=== PATIENT | female | born 1930 | race Asian ===

== ENCOUNTER 2016-10-17 13:55 | Inpatient (IN) | payer MEDICARE, OTHER ==
[~2016-10-17] VITALS: Ht 152.4 cm; Wt 55.3 kg
[2016-10-17 14:35] VITALS: BP 103/65
[2016-10-17] MEDS: ACETAMINOPHEN 325 MG TABLET PO PRN (14:51)
[2016-10-17] MEDS ORDERED: ACETAMINOPHEN 325 MG TABLET ONE (15:05)
[2016-10-17 15:17] VITALS: BP 104/61
[2016-10-17 15:35] VITALS: BP 124/66
[2016-10-17] MEDS ORDERED: DEXTROSE 50%-WATER 25 GM/50 ML SYRINGE IVP PRN ×2 (16:00)
[2016-10-17] MEDS ORDERED: INSULIN ASPART 100 UNITS/ML SQ PRN (16:00)
[2016-10-17 18:07] LABS: GLUCOSE,POINT OF CARE 99 MG/DL (70-110)
[2016-10-17 20:00] VITALS: BP 98/53
[2016-10-17] MEDS: SENNA 187 MG TABLET PO SCH (20:16)
[2016-10-17] MEDS: DOCUSATE SODIUM 100 MG CAPSULE PO SCH (20:16)
[2016-10-17] MEDS: ATORVASTATIN CALCIUM 10 MG TABLET PO SCH (20:16)
[2016-10-17] MEDS: HEPARIN SODIUM,PORCINE 5,000 UNITS/ML VIAL SQ SCH (20:17)
[2016-10-17] MEDS: LISINOPRIL 20 MG TABLET PO SCH (20:17)
[2016-10-17] MEDS: LevETIRAcetam 500 MG TABLET PO SCH (20:17)
[2016-10-17] MEDS ORDERED: DEXAMETHASONE 2 MG TABLET PO SCH (21:00)
[2016-10-17] MEDS ORDERED: ATORVASTATIN CALCIUM 10 MG TABLET PO SCH (21:00)
[2016-10-17 21:38] LABS: GLUCOSE,POINT OF CARE 117 MG/DL (70-110)
[2016-10-17 21:47] LABS: APPEARANCE,URINE CLEAR (CLEAR); GLUCOSE, URINE (UA) NEGATIVE (NEGATIVE); KETONES,URINE NEGATIVE (NEGATIVE); LEUKOCYTE ESTERASE ,URINE SMALL (NEGATIVE); OCCULT BLOOD,URINE NEGATIVE (NEGATIVE); PROTEIN,URINE NEGATIVE (NEGATIVE)
[2016-10-17 21:56] LABS: SQUAMOUS EPITHELIAL CELL,UR Moderate /LPF (None Seen)
[2016-10-17 21:58] LABS: RBC,URINE 0-2 /HPF (0-2)
[2016-10-18] VITALS: BP 121/71
[2016-10-18] MEDS: ACETAMINOPHEN 325 MG TABLET PO PRN (02:51)
[2016-10-18 05:37] LABS: GLUCOSE,POINT OF CARE 110 MG/DL (70-110)
[2016-10-18 07:20] VITALS: BP 115/76
[2016-10-18 07:29] LABS: BASOPHILS % (AUTO) 0.1 % (0.0-2.0); HEMATOCRIT 39.9 % (36-46); HEMOGLOBIN 13.7 g/dL (12.0-16.0); LYMPHOCYTES # (AUTO) 1.6 K/uL (1.0-4.8); LYMPHOCYTES % (AUTO) 22.8 % (22.0-44.0); MEAN CORPUSCULAR HEMOGLOBIN 32.2 pg (26.0-34.0); MEAN CORPUSCULAR HGB CONC 34.3 G/dL (31.0-37.0); MEAN CORPUSCULAR VOLUME 94 fL (80-100); MONOCYTES # (AUTO) 0.8 K/uL (0.1-1.0); MONOCYTES % (AUTO) 10.9 % (2.0-9.0); NEUTROPHILS # (AUTO) 4.5 K/uL (1.8-7.7); NEUTROPHILS % (AUTO) 64.2 % (40.0-70.0); PLATELET COUNT (AUTO) 222 K/uL (150-450); RED BLOOD CELL COUNT(AUTO) 4.25 MIL/uL (4.00-5.20); RED CELL DISTRIBUTION WIDTH 14.2 % (11.5-14.5); WHITE BLOOD COUNT (AUTO) 7.1 K/uL (4.5-11.0)
[2016-10-18 07:46] LABS: ALANINE AMINOTRANSFERASE 46 U/L (12-78); ALBUMIN 2.8 g/dL (3.4-5.0); ANION GAP 6 mmol/L (8-16); ASPARTATE AMINOTRANSFERASE 23 U/L (15-37); BILIRUBIN,TOTAL 0.7 mg/dL (0.1-1.0); CARBON DIOXIDE 31 mmol/L (22-29); CHLORIDE 102 mmol/L (98-107); CREATININE 0.74 mg/dL (0.60-1.30); GLOMERULAR FILTR. RATE CALC > 60 mL/min (>60); SODIUM SERUM 139 mmol/L (136-145); UREA NITROGEN, BLOOD 21 mg/dL (7-18)
[2016-10-18 07:58] LABS: TOTAL PROTEIN, SERUM 5.9 g/dL (6.4-8.2)
[2016-10-18] MEDS: AmLODIPine BESYLATE 10 MG TABLET PO SCH (08:49)
[2016-10-18] MEDS: HEPARIN SODIUM,PORCINE 5,000 UNITS/ML VIAL SQ SCH ×2 (08:49→21:07)
[2016-10-18] MEDS: PANTOPRAZOLE SODIUM 40 MG DR TABLET PO SCH (08:49)
[2016-10-18] MEDS: ESCITALOPRAM OXALATE 20 MG TABLET PO SCH (08:49)
[2016-10-18] MEDS: DEXAMETHASONE 2 MG TABLET PO SCH (08:50)
[2016-10-18] MEDS: DOCUSATE SODIUM 100 MG CAPSULE PO SCH ×2 (08:50→21:08)
[2016-10-18] MEDS: CALCIUM OYSTER SHELL 250 MG-VIT D3 125 UNITS TABLET PO SCH (08:50)
[2016-10-18] MEDS: MULTIVITAMINS WITH MINERALS, THERAPEUTIC TABLET PO SCH (08:50)
[2016-10-18] MEDS: LevETIRAcetam 500 MG TABLET PO SCH ×2 (08:50→21:07)
[2016-10-18 11:57] LABS: GLUCOSE,POINT OF CARE 100 MG/DL (70-110)
[2016-10-18 16:00] VITALS: BP 114/61
[2016-10-18 17:47] LABS: GLUCOSE,POINT OF CARE 87 MG/DL (70-110)
[2016-10-18 21:00] VITALS: BP 123/68
[2016-10-18] MEDS: SENNA 187 MG TABLET PO SCH (21:07)
[2016-10-18] MEDS: ATORVASTATIN CALCIUM 10 MG TABLET PO SCH (21:07)
[2016-10-18] MEDS: LISINOPRIL 20 MG TABLET PO SCH (21:08)
[2016-10-18 22:22] LABS: GLUCOSE,POINT OF CARE 139 MG/DL (70-110)
[2016-10-18 23:53] VITALS: BP 120/81
[2016-10-19 06:12] LABS: GLUCOSE,POINT OF CARE 115 MG/DL (70-110)
[2016-10-19 07:10] VITALS: BP 108/65
[2016-10-19] MEDS: DOCUSATE SODIUM 100 MG CAPSULE PO SCH (07:59)
[2016-10-19] MEDS: PANTOPRAZOLE SODIUM 40 MG DR TABLET PO SCH (07:59)
[2016-10-19] MEDS: CALCIUM OYSTER SHELL 250 MG-VIT D3 125 UNITS TABLET PO SCH (07:59)
[2016-10-19] MEDS: DEXAMETHASONE 2 MG TABLET PO SCH (08:00)
[2016-10-19] MEDS: HEPARIN SODIUM,PORCINE 5,000 UNITS/ML VIAL SQ SCH ×2 (08:00→20:57)
[2016-10-19] MEDS: AmLODIPine BESYLATE 10 MG TABLET PO SCH (08:00)
[2016-10-19] MEDS: MULTIVITAMINS WITH MINERALS, THERAPEUTIC TABLET PO SCH (08:00)
[2016-10-19] MEDS: LevETIRAcetam 500 MG TABLET PO SCH ×2 (08:00→20:56)
[2016-10-19] MEDS: ESCITALOPRAM OXALATE 20 MG TABLET PO SCH (08:00)
[2016-10-19 12:57] LABS: GLUCOSE,POINT OF CARE 121 MG/DL (70-110)
[2016-10-19 15:10] VITALS: BP 104/65
[2016-10-19 17:33] LABS: GLUCOSE,POINT OF CARE 109 MG/DL (70-110)
[2016-10-19 20:50] VITALS: BP 131/68
[2016-10-19] MEDS: ATORVASTATIN CALCIUM 10 MG TABLET PO SCH (20:56)
[2016-10-19] MEDS ORDERED: SENNA 187 MG TABLET PO PRN (21:00)
[2016-10-19] MEDS: LISINOPRIL 20 MG TABLET PO SCH (21:08)
[2016-10-19 21:12] LABS: GLUCOSE,POINT OF CARE 116 MG/DL (70-110)
[2016-10-20 00:13] VITALS: BP 110/68
[2016-10-20] MEDS: DOCUSATE SODIUM 283 MG/5 ML MINI-ENEMA PR PRN (05:25)
[2016-10-20 05:42] LABS: GLUCOSE,POINT OF CARE 94 MG/DL (70-110)
[2016-10-20 07:10] VITALS: BP 106/65
[2016-10-20] MEDS: ESCITALOPRAM OXALATE 20 MG TABLET PO SCH (08:07)
[2016-10-20] MEDS: CALCIUM OYSTER SHELL 250 MG-VIT D3 125 UNITS TABLET PO SCH (08:07)
[2016-10-20] MEDS: LevETIRAcetam 500 MG TABLET PO SCH ×2 (08:07→20:54)
[2016-10-20] MEDS: PANTOPRAZOLE SODIUM 40 MG DR TABLET PO SCH (08:08)
[2016-10-20] MEDS: AmLODIPine BESYLATE 10 MG TABLET PO SCH (08:08)
[2016-10-20] MEDS: MULTIVITAMINS WITH MINERALS, THERAPEUTIC TABLET PO SCH (08:08)
[2016-10-20] MEDS: DEXAMETHASONE 2 MG TABLET PO SCH (08:08)
[2016-10-20] MEDS: HEPARIN SODIUM,PORCINE 5,000 UNITS/ML VIAL SQ SCH ×2 (08:08→20:54)
[2016-10-20] MEDS ORDERED: ESCI20TA PO (08:29)
[2016-10-20] MEDS ORDERED: ATOR10TA84 PO (08:29)
[2016-10-20] MEDS ORDERED: MULT-1259 PO (08:29)
[2016-10-20] MEDS ORDERED: ESOM20CA31 PO (08:29)
[2016-10-20] MEDS ORDERED: CALC-52 PO (08:29)
[2016-10-20 15:00] VITALS: BP 104/61
[2016-10-20 17:07] LABS: GLUCOSE,POINT OF CARE 140 MG/DL (70-110)
[2016-10-20 20:50] VITALS: BP 108/64
[2016-10-20] MEDS: LISINOPRIL 20 MG TABLET PO SCH (20:54)
[2016-10-20] MEDS: ATORVASTATIN CALCIUM 10 MG TABLET PO SCH (20:54)
[2016-10-20 21:22] LABS: GLUCOSE,POINT OF CARE 159 MG/DL (70-110)
[2016-10-21 00:44] VITALS: BP 116/54
[2016-10-21] MEDS: DOCUSATE SODIUM 283 MG/5 ML MINI-ENEMA PR PRN (04:56)
[2016-10-21] MEDS ORDERED: DOCUSATE SODIUM 283 MG/5 ML MINI-ENEMA PR SCH (06:30)
[2016-10-21 07:02] LABS: GLUCOSE,POINT OF CARE 97 MG/DL (70-110)
[2016-10-21 07:02] LABS: GLUCOSE,POINT OF CARE 100 MG/DL (70-110)
[2016-10-21 07:30] VITALS: BP 116/69
[2016-10-21] MEDS: AmLODIPine BESYLATE 10 MG TABLET PO SCH (07:44)
[2016-10-21] MEDS: ESCITALOPRAM OXALATE 20 MG TABLET PO SCH (07:44)
[2016-10-21] MEDS: LevETIRAcetam 500 MG TABLET PO SCH ×2 (07:44→20:41)
[2016-10-21] MEDS: CALCIUM OYSTER SHELL 250 MG-VIT D3 125 UNITS TABLET PO SCH (07:44)
[2016-10-21] MEDS: PANTOPRAZOLE SODIUM 40 MG DR TABLET PO SCH (07:45)
[2016-10-21] MEDS: HEPARIN SODIUM,PORCINE 5,000 UNITS/ML VIAL SQ SCH ×2 (07:45→20:41)
[2016-10-21] MEDS: MULTIVITAMINS WITH MINERALS, THERAPEUTIC TABLET PO SCH (07:45)
[2016-10-21 11:37] LABS: GLUCOSE,POINT OF CARE 92 MG/DL (70-110)
[2016-10-21 15:47] VITALS: BP 104/56
[2016-10-21 18:07] LABS: GLUCOSE,POINT OF CARE 107 MG/DL (70-110)
[2016-10-21] MEDS: ATORVASTATIN CALCIUM 10 MG TABLET PO SCH (20:41)
[2016-10-21] MEDS: LISINOPRIL 20 MG TABLET PO SCH (20:41)
[2016-10-21 23:40] VITALS: BP 108/63
[2016-10-22] MEDS: DOCUSATE SODIUM 283 MG/5 ML MINI-ENEMA PR PRN (04:52)
[2016-10-22 06:07] LABS: GLUCOSE,POINT OF CARE 105 MG/DL (70-110)
[2016-10-22 07:21] VITALS: BP 103/65
[2016-10-22] MEDS: AmLODIPine BESYLATE 10 MG TABLET PO SCH (09:03)
[2016-10-22] MEDS: ESCITALOPRAM OXALATE 20 MG TABLET PO SCH (09:03)
[2016-10-22] MEDS: HEPARIN SODIUM,PORCINE 5,000 UNITS/ML VIAL SQ SCH ×2 (09:03→20:40)
[2016-10-22] MEDS: CALCIUM OYSTER SHELL 250 MG-VIT D3 125 UNITS TABLET PO SCH (09:04)
[2016-10-22] MEDS: PANTOPRAZOLE SODIUM 40 MG DR TABLET PO SCH (09:04)
[2016-10-22] MEDS: LevETIRAcetam 500 MG TABLET PO SCH ×2 (09:04→20:40)
[2016-10-22] MEDS: MULTIVITAMINS WITH MINERALS, THERAPEUTIC TABLET PO SCH (09:04)
[2016-10-22 16:19] VITALS: BP 99/55
[2016-10-22 20:40] VITALS: BP 113/71
[2016-10-22] MEDS: ATORVASTATIN CALCIUM 10 MG TABLET PO SCH (20:40)
[2016-10-22] MEDS: LISINOPRIL 20 MG TABLET PO SCH (20:40)
[2016-10-22 20:47] VITALS: BP 113/71
[2016-10-22 21:17] LABS: GLUCOSE,POINT OF CARE 101 MG/DL (70-110)
[2016-10-22 23:20] VITALS: BP 113/66
[2016-10-23 05:47] LABS: GLUCOSE,POINT OF CARE 112 MG/DL (70-110)
[2016-10-23 07:30] VITALS: BP 96/49
[2016-10-23] MEDS: HEPARIN SODIUM,PORCINE 5,000 UNITS/ML VIAL SQ SCH ×2 (07:42→21:11)
[2016-10-23] MEDS: PANTOPRAZOLE SODIUM 40 MG DR TABLET PO SCH (07:42)
[2016-10-23] MEDS: CALCIUM OYSTER SHELL 250 MG-VIT D3 125 UNITS TABLET PO SCH (07:42)
[2016-10-23] MEDS: AmLODIPine BESYLATE 10 MG TABLET PO SCH (07:43)
[2016-10-23] MEDS: LevETIRAcetam 500 MG TABLET PO SCH ×2 (07:43→21:09)
[2016-10-23] MEDS: MULTIVITAMINS WITH MINERALS, THERAPEUTIC TABLET PO SCH (07:43)
[2016-10-23] MEDS: ESCITALOPRAM OXALATE 20 MG TABLET PO SCH (07:43)
[2016-10-23] MEDS ORDERED: TUBERCULIN, PURIFIED PROTEIN DERIVATIVE 5 TU/0.1 ML SYG ID ONE (11:30)
[2016-10-23 16:58] VITALS: BP 98/63
[2016-10-23 21:03] VITALS: BP 104/63
[2016-10-23] MEDS: ATORVASTATIN CALCIUM 10 MG TABLET PO SCH (21:09)
[2016-10-23] MEDS: LISINOPRIL 10 MG TABLET PO SCH (21:11)
[2016-10-24 00:29] VITALS: BP 101/57
[2016-10-24 07:00] VITALS: BP 97/66
[2016-10-24] MEDS: HEPARIN SODIUM,PORCINE 5,000 UNITS/ML VIAL SQ SCH ×2 (07:56→21:27)
[2016-10-24] MEDS: DOCUSATE SODIUM 100 MG CAPSULE PO PRN (07:56)
[2016-10-24] MEDS: PANTOPRAZOLE SODIUM 40 MG DR TABLET PO SCH (07:56)
[2016-10-24] MEDS: MULTIVITAMINS WITH MINERALS, THERAPEUTIC TABLET PO SCH (07:57)
[2016-10-24] MEDS: LevETIRAcetam 500 MG TABLET PO SCH ×2 (07:58→21:21)
[2016-10-24] MEDS: ESCITALOPRAM OXALATE 20 MG TABLET PO SCH (07:59)
[2016-10-24] MEDS: AmLODIPine BESYLATE 10 MG TABLET PO SCH (07:59)
[2016-10-24] MEDS: CALCIUM OYSTER SHELL 250 MG-VIT D3 125 UNITS TABLET PO SCH (07:59)
[2016-10-24 15:34] VITALS: BP 98/56
[2016-10-24] MEDS: ATORVASTATIN CALCIUM 10 MG TABLET PO SCH (21:22)
[2016-10-24 21:38] VITALS: BP 110/62
[2016-10-24] MEDS: LISINOPRIL 10 MG TABLET PO SCH (21:59)
[2016-10-25] VITALS: BP 97/57
[2016-10-25 07:00] VITALS: BP 90/49
[2016-10-25] MEDS: CALCIUM OYSTER SHELL 250 MG-VIT D3 125 UNITS TABLET PO SCH (07:41)
[2016-10-25] MEDS: PANTOPRAZOLE SODIUM 40 MG DR TABLET PO SCH (07:41)
[2016-10-25] MEDS: ESCITALOPRAM OXALATE 20 MG TABLET PO SCH (07:41)
[2016-10-25] MEDS: HEPARIN SODIUM,PORCINE 5,000 UNITS/ML VIAL SQ SCH ×2 (07:41→20:47)
[2016-10-25] MEDS: MULTIVITAMINS WITH MINERALS, THERAPEUTIC TABLET PO SCH (07:41)
[2016-10-25] MEDS: AmLODIPine BESYLATE 10 MG TABLET PO SCH (07:41)
[2016-10-25] MEDS: LevETIRAcetam 500 MG TABLET PO SCH ×2 (07:41→20:47)
[2016-10-25 09:15] VITALS: BP 87/55
[2016-10-25] MEDS: ACETAMINOPHEN 325 MG TABLET PO PRN (15:21)
[2016-10-25 15:22] VITALS: BP 94/64
[2016-10-25] MEDS: ATORVASTATIN CALCIUM 10 MG TABLET PO SCH (20:47)
[2016-10-26 01:20] VITALS: BP 103/56
[2016-10-26 07:20] VITALS: BP 101/57
[2016-10-26] MEDS: CALCIUM OYSTER SHELL 250 MG-VIT D3 125 UNITS TABLET PO SCH (07:58)
[2016-10-26] MEDS: ESCITALOPRAM OXALATE 20 MG TABLET PO SCH (07:58)
[2016-10-26] MEDS: PANTOPRAZOLE SODIUM 40 MG DR TABLET PO SCH (07:58)
[2016-10-26] MEDS: MULTIVITAMINS WITH MINERALS, THERAPEUTIC TABLET PO SCH (07:58)
[2016-10-26] MEDS: LevETIRAcetam 500 MG TABLET PO SCH ×2 (07:59→20:00)
[2016-10-26] MEDS: HEPARIN SODIUM,PORCINE 5,000 UNITS/ML VIAL SQ SCH ×2 (07:59→20:00)
[2016-10-26 08:05] VITALS: BP 99/67
[2016-10-26] MEDS: AmLODIPine BESYLATE 10 MG TABLET PO SCH (08:05)
[2016-10-26 15:30] VITALS: BP 111/63
[2016-10-26] MEDS: ATORVASTATIN CALCIUM 10 MG TABLET PO SCH (20:00)
[2016-10-26 23:25] VITALS: BP 137/69
[2016-10-27 07:00] VITALS: BP 106/64
[2016-10-27] MEDS: HEPARIN SODIUM,PORCINE 5,000 UNITS/ML VIAL SQ SCH ×2 (07:49→22:12)
[2016-10-27] MEDS: CALCIUM OYSTER SHELL 250 MG-VIT D3 125 UNITS TABLET PO SCH (07:50)
[2016-10-27] MEDS: MULTIVITAMINS WITH MINERALS, THERAPEUTIC TABLET PO SCH (07:50)
[2016-10-27] MEDS: LevETIRAcetam 500 MG TABLET PO SCH ×2 (07:50→22:12)
[2016-10-27] MEDS: ESCITALOPRAM OXALATE 20 MG TABLET PO SCH (07:50)
[2016-10-27] MEDS: AmLODIPine BESYLATE 10 MG TABLET PO SCH (07:50)
[2016-10-27] MEDS: PANTOPRAZOLE SODIUM 40 MG DR TABLET PO SCH (07:50)
[2016-10-27 15:00] VITALS: BP 102/58
[2016-10-27] MEDS: ATORVASTATIN CALCIUM 10 MG TABLET PO SCH (22:12)
[2016-10-28] VITALS: BP 112/66
[2016-10-28 07:51] VITALS: BP 107/68
[2016-10-28] MEDS: AmLODIPine BESYLATE 5 MG TABLET PO SCH (08:02)
[2016-10-28] MEDS: MULTIVITAMINS WITH MINERALS, THERAPEUTIC TABLET PO SCH (08:02)
[2016-10-28] MEDS: PANTOPRAZOLE SODIUM 40 MG DR TABLET PO SCH (08:02)
[2016-10-28] MEDS: HEPARIN SODIUM,PORCINE 5,000 UNITS/ML VIAL SQ SCH ×2 (08:02→21:15)
[2016-10-28] MEDS: CALCIUM OYSTER SHELL 250 MG-VIT D3 125 UNITS TABLET PO SCH (08:02)
[2016-10-28] MEDS: LevETIRAcetam 500 MG TABLET PO SCH ×2 (08:02→21:15)
[2016-10-28] MEDS: ESCITALOPRAM OXALATE 20 MG TABLET PO SCH (08:02)
[2016-10-28 17:23] VITALS: BP 135/63
[2016-10-28] MEDS: ATORVASTATIN CALCIUM 10 MG TABLET PO SCH (21:15)
[2016-10-29 01:54] VITALS: BP 123/70
[2016-10-29 07:14] VITALS: BP 104/71
[2016-10-29] MEDS: PANTOPRAZOLE SODIUM 40 MG DR TABLET PO SCH (08:33)
[2016-10-29] MEDS: LevETIRAcetam 500 MG TABLET PO SCH ×2 (08:33→21:02)
[2016-10-29] MEDS: CALCIUM OYSTER SHELL 250 MG-VIT D3 125 UNITS TABLET PO SCH (08:33)
[2016-10-29] MEDS: MULTIVITAMINS WITH MINERALS, THERAPEUTIC TABLET PO SCH (08:33)
[2016-10-29] MEDS: AmLODIPine BESYLATE 5 MG TABLET PO SCH (08:34)
[2016-10-29] MEDS: HEPARIN SODIUM,PORCINE 5,000 UNITS/ML VIAL SQ SCH ×2 (08:34→21:02)
[2016-10-29] MEDS: ESCITALOPRAM OXALATE 20 MG TABLET PO SCH (08:34)
[2016-10-29 13:02] VITALS: BP 98/53
[2016-10-29 15:26] VITALS: BP 97/71
[2016-10-29] MEDS: ATORVASTATIN CALCIUM 10 MG TABLET PO SCH (21:02)
[2016-10-30] VITALS: BP 102/62
[2016-10-30 07:57] VITALS: BP 115/78
[2016-10-30] MEDS: CALCIUM OYSTER SHELL 250 MG-VIT D3 125 UNITS TABLET PO SCH (08:25)
[2016-10-30] MEDS: LevETIRAcetam 500 MG TABLET PO SCH (08:25)
[2016-10-30] MEDS: MULTIVITAMINS WITH MINERALS, THERAPEUTIC TABLET PO SCH (08:25)
[2016-10-30] MEDS: ESCITALOPRAM OXALATE 20 MG TABLET PO SCH (08:25)
[2016-10-30] MEDS: AmLODIPine BESYLATE 5 MG TABLET PO SCH (08:25)
[2016-10-30] MEDS: HEPARIN SODIUM,PORCINE 5,000 UNITS/ML VIAL SQ SCH ×2 (08:25→20:20)
[2016-10-30] MEDS: PANTOPRAZOLE SODIUM 40 MG DR TABLET PO SCH (08:26)
[2016-10-30] MEDS: LamoTRIgine 25 MG TABLET PO SCH (12:38)
[2016-10-30 15:30] VITALS: BP 103/65
[2016-10-30] MEDS: ATORVASTATIN CALCIUM 10 MG TABLET PO SCH (20:20)
[2016-10-31] VITALS: BP 119/64
[2016-10-31 07:00] VITALS: BP 104/58
[2016-10-31] MEDS: AmLODIPine BESYLATE 5 MG TABLET PO SCH (07:54)
[2016-10-31] MEDS: ESCITALOPRAM OXALATE 20 MG TABLET PO SCH (07:55)
[2016-10-31] MEDS: LamoTRIgine 25 MG TABLET PO SCH (07:55)
[2016-10-31] MEDS: MULTIVITAMINS WITH MINERALS, THERAPEUTIC TABLET PO SCH (07:56)
[2016-10-31] MEDS: FAMOTIDINE 20 MG TABLET PO SCH (07:56)
[2016-10-31] MEDS: DOCUSATE SODIUM 100 MG CAPSULE PO PRN (07:56)
[2016-10-31] MEDS: CALCIUM OYSTER SHELL 250 MG-VIT D3 125 UNITS TABLET PO SCH (07:56)
[2016-10-31] MEDS: POLYETHYLENE GLYCOL 3350 17 GM PACKET PO PRN ×2 (07:57→08:10)
[2016-10-31 08:00] VITALS: BP 104/58
[2016-10-31] MEDS: HEPARIN SODIUM,PORCINE 5,000 UNITS/ML VIAL SQ SCH ×2 (12:22→20:21)
[2016-10-31 15:52] VITALS: BP 106/74
[2016-10-31] MEDS: ATORVASTATIN CALCIUM 10 MG TABLET PO SCH (20:20)
[2016-10-31 23:11] VITALS: BP 113/60
[2016-11-01 07:02] VITALS: BP 114/75
[2016-11-01] MEDS: ESCITALOPRAM OXALATE 20 MG TABLET PO SCH (07:25)
[2016-11-01] MEDS: LamoTRIgine 25 MG TABLET PO SCH (07:25)
[2016-11-01] MEDS: CALCIUM OYSTER SHELL 250 MG-VIT D3 125 UNITS TABLET PO SCH (07:26)
[2016-11-01] MEDS: MULTIVITAMINS WITH MINERALS, THERAPEUTIC TABLET PO SCH (07:26)
[2016-11-01] MEDS: FAMOTIDINE 20 MG TABLET PO SCH (07:26)
[2016-11-01] MEDS: AmLODIPine BESYLATE 5 MG TABLET PO SCH (07:26)
[2016-11-01] MEDS: HEPARIN SODIUM,PORCINE 5,000 UNITS/ML VIAL SQ SCH ×2 (07:26→20:25)
[2016-11-01 15:00] VITALS: BP 119/70
[2016-11-01] MEDS: ATORVASTATIN CALCIUM 10 MG TABLET PO SCH (20:25)
[2016-11-01] MEDS: DOCUSATE SODIUM 100 MG CAPSULE PO SCH (20:25)
[2016-11-01] MEDS: LACOSAMIDE 100 MG TABLET PO SCH (20:32)
[2016-11-01 23:00] VITALS: BP 113/61
[2016-11-02 07:15] VITALS: BP 102/66
[2016-11-02] MEDS: CALCIUM OYSTER SHELL 250 MG-VIT D3 125 UNITS TABLET PO SCH (07:23)
[2016-11-02] MEDS: AmLODIPine BESYLATE 5 MG TABLET PO SCH (07:23)
[2016-11-02] MEDS: MULTIVITAMINS WITH MINERALS, THERAPEUTIC TABLET PO SCH (07:23)
[2016-11-02] MEDS: ESCITALOPRAM OXALATE 20 MG TABLET PO SCH (07:23)
[2016-11-02] MEDS: DOCUSATE SODIUM 100 MG CAPSULE PO SCH ×2 (07:23→21:05)
[2016-11-02] MEDS: FAMOTIDINE 20 MG TABLET PO SCH (07:23)
[2016-11-02] MEDS: LACOSAMIDE 100 MG TABLET PO SCH ×2 (07:24→21:06)
[2016-11-02] MEDS: HEPARIN SODIUM,PORCINE 5,000 UNITS/ML VIAL SQ SCH ×2 (07:24→21:06)
[2016-11-02] MEDS ORDERED: FAMO20 PO (13:50)
[2016-11-02] MEDS ORDERED: DSS100 PO (13:50)
[2016-11-02] MEDS ORDERED: LACO100 PO (13:50)
[2016-11-02 15:53] VITALS: BP 98/63
[2016-11-02] MEDS: ATORVASTATIN CALCIUM 10 MG TABLET PO SCH (21:05)
[2016-11-02 23:30] VITALS: BP 107/65
[2016-11-03 07:35] VITALS: BP 119/70
[2016-11-03] MEDS: AmLODIPine BESYLATE 5 MG TABLET PO SCH (08:16)
[2016-11-03] MEDS: FAMOTIDINE 20 MG TABLET PO SCH (08:16)
[2016-11-03] MEDS: MULTIVITAMINS WITH MINERALS, THERAPEUTIC TABLET PO SCH (08:16)
[2016-11-03] MEDS: ESCITALOPRAM OXALATE 20 MG TABLET PO SCH (08:16)
[2016-11-03] MEDS: DOCUSATE SODIUM 100 MG CAPSULE PO SCH ×2 (08:16→20:28)
[2016-11-03] MEDS: LACOSAMIDE 100 MG TABLET PO SCH ×2 (08:16→20:28)
[2016-11-03] MEDS: CALCIUM OYSTER SHELL 250 MG-VIT D3 125 UNITS TABLET PO SCH (08:17)
[2016-11-03] MEDS: HEPARIN SODIUM,PORCINE 5,000 UNITS/ML VIAL SQ SCH ×2 (08:17→20:28)
[2016-11-03 15:43] VITALS: BP 105/65
[2016-11-03] MEDS: ATORVASTATIN CALCIUM 10 MG TABLET PO SCH (20:28)
[2016-11-04 04:17] VITALS: BP 127/72
[2016-11-04 07:12] VITALS: BP 120/76
[2016-11-04] MEDS: DOCUSATE SODIUM 100 MG CAPSULE PO SCH ×2 (07:51→20:37)
[2016-11-04] MEDS: LACOSAMIDE 100 MG TABLET PO SCH ×2 (07:51→20:37)
[2016-11-04] MEDS: MULTIVITAMINS WITH MINERALS, THERAPEUTIC TABLET PO SCH (07:52)
[2016-11-04] MEDS: FAMOTIDINE 20 MG TABLET PO SCH (07:52)
[2016-11-04] MEDS: HEPARIN SODIUM,PORCINE 5,000 UNITS/ML VIAL SQ SCH ×2 (07:53→20:37)
[2016-11-04] MEDS: AmLODIPine BESYLATE 5 MG TABLET PO SCH (07:53)
[2016-11-04] MEDS: ESCITALOPRAM OXALATE 20 MG TABLET PO SCH (07:53)
[2016-11-04] MEDS: CALCIUM OYSTER SHELL 250 MG-VIT D3 125 UNITS TABLET PO SCH (07:53)
[2016-11-04 15:25] VITALS: BP 103/73
[2016-11-04] MEDS: ATORVASTATIN CALCIUM 10 MG TABLET PO SCH (20:37)
[2016-11-05 00:30] VITALS: BP 122/76
[2016-11-05 07:41] VITALS: BP 114/75
[2016-11-05] MEDS: HEPARIN SODIUM,PORCINE 5,000 UNITS/ML VIAL SQ SCH ×2 (08:05→20:25)
[2016-11-05] MEDS: LACOSAMIDE 100 MG TABLET PO SCH ×2 (08:05→20:25)
[2016-11-05] MEDS: DOCUSATE SODIUM 100 MG CAPSULE PO SCH ×2 (08:05→20:25)
[2016-11-05] MEDS: ESCITALOPRAM OXALATE 20 MG TABLET PO SCH (08:06)
[2016-11-05] MEDS: AmLODIPine BESYLATE 5 MG TABLET PO SCH (08:06)
[2016-11-05] MEDS: MULTIVITAMINS WITH MINERALS, THERAPEUTIC TABLET PO SCH (08:06)
[2016-11-05] MEDS: FAMOTIDINE 20 MG TABLET PO SCH (08:06)
[2016-11-05] MEDS: CALCIUM OYSTER SHELL 250 MG-VIT D3 125 UNITS TABLET PO SCH (08:06)
[2016-11-05] MEDS ORDERED: MV-M1TAB2 PO (11:49)
[2016-11-05] MEDS ORDERED: [UNRECOGNIZED DRUG - CODE] PO (11:49)
[2016-11-05] MEDS ORDERED: Theragran M PO (11:50)
[2016-11-05] MEDS ORDERED: AMLO-511 PO (11:51)
[2016-11-05 15:30] VITALS: BP 110/65
[2016-11-05] MEDS: ATORVASTATIN CALCIUM 10 MG TABLET PO SCH (20:25)
[2016-11-05 23:50] VITALS: BP 134/82
[2016-11-06 06:58] LABS: ALANINE AMINOTRANSFERASE 35 U/L (12-78); ALBUMIN 3.5 g/dL (3.4-5.0); ANION GAP 10 mmol/L (8-16); ASPARTATE AMINOTRANSFERASE 21 U/L (15-37); BILIRUBIN,TOTAL 0.4 mg/dL (0.1-1.0); CALCIUM, TOTAL 9.4 mg/dL (8.8-10.5); CARBON DIOXIDE 28 mmol/L (22-29); CHLORIDE 104 mmol/L (98-107); CREATININE 0.78 mg/dL (0.60-1.30); GLOMERULAR FILTR. RATE CALC > 60 mL/min (>60); POTASSIUM 4.1 mmol/L (3.5-5.1); SODIUM SERUM 142 mmol/L (136-145); TOTAL PROTEIN, SERUM 6.9 g/dL (6.4-8.2); UREA NITROGEN, BLOOD 16 mg/dL (7-18)
[2016-11-06 07:03] VITALS: BP 121/74
[2016-11-06 07:43] LABS: BASOPHILS % (AUTO) 0.4 % (0.0-2.0); HEMATOCRIT 42.3 % (36-46); HEMOGLOBIN 14.9 g/dL (12.0-16.0); LYMPHOCYTES % (AUTO) 44.4 % (22.0-44.0); MEAN CORPUSCULAR HEMOGLOBIN 32.6 pg (26.0-34.0); MEAN CORPUSCULAR HGB CONC 35.3 G/dL (31.0-37.0); MEAN CORPUSCULAR VOLUME 92 fL (80-100); MONOCYTES # (AUTO) 0.4 K/uL (0.1-1.0); NEUTROPHILS # (AUTO) 0.8 K/uL (1.8-7.7); NEUTROPHILS % (AUTO) 36.2 % (40.0-70.0); PLATELET COUNT (AUTO) 245 K/uL (150-450); RED BLOOD CELL COUNT(AUTO) 4.58 MIL/uL (4.00-5.20); RED CELL DISTRIBUTION WIDTH 14.6 % (11.5-14.5); WHITE BLOOD COUNT (AUTO) 2.3 K/uL (4.5-11.0)
[2016-11-06] MEDS: LACOSAMIDE 100 MG TABLET PO SCH (08:12)
[2016-11-06] MEDS: AmLODIPine BESYLATE 5 MG TABLET PO SCH (08:12)
[2016-11-06] MEDS: FAMOTIDINE 20 MG TABLET PO SCH (08:12)
[2016-11-06] MEDS: CALCIUM OYSTER SHELL 250 MG-VIT D3 125 UNITS TABLET PO SCH (08:12)
[2016-11-06] MEDS: MULTIVITAMINS WITH MINERALS, THERAPEUTIC TABLET PO SCH (08:12)
[2016-11-06] MEDS: DOCUSATE SODIUM 100 MG CAPSULE PO SCH (08:12)
[2016-11-06] MEDS: ESCITALOPRAM OXALATE 20 MG TABLET PO SCH (08:12)
[2016-11-06] MEDS: HEPARIN SODIUM,PORCINE 5,000 UNITS/ML VIAL SQ SCH (08:13)
[2016-11-06] MEDS ORDERED: AMLO5TAB66 PO (09:39)
[2016-11-06] MEDS ORDERED: ATOR10TA69 PO (09:39)
[2016-11-06] MEDS ORDERED: ESCI20TA36 PO (09:40)
[2016-11-06] MEDS ORDERED: MULT-1239 PO (09:40)
[2016-11-06] MEDS ORDERED: DSS100 PO (09:40)
[2016-11-06] MEDS ORDERED: OSCD250 PO (09:40)
[2016-11-06] MEDS ORDERED: FAMO20 PO (09:40)
== END 2016-11-06 14:30 | disposition home health service (06) | DRG 101 ==
LOC: 2WR 13:55
PROVIDERS: ADMIT Physical Medicine & Rehabilitation; ATTEND Physical Medicine & Rehabilitation
PROC: 4A00X4Z Measurement of Central Nervous Electrical Activity, External Approach (ICD-10-PCS; principal; 2016-10-31)
DX: G40.909 Epilepsy, unspecified, not intractable, without status epilepticus (principal); G81.91 Hemiplegia, unspecified affecting right dominant side; E78.5 Hyperlipidemia, unspecified; R26.9 Unspecified abnormalities of gait and mobility; M81.0 Age-related osteoporosis without current pathological fracture; F32.9 Major depressive disorder, single episode, unspecified; I10 Essential (primary) hypertension; R21 Rash and other nonspecific skin eruption; R53.1 Weakness; R94.01 Abnormal electroencephalogram [EEG]; E78.00 Pure hypercholesterolemia, unspecified; K21.9 Gastro-esophageal reflux disease without esophagitis; L27.0 Generalized skin eruption due to drugs and medicaments taken internally; Z86.011 Personal history of benign neoplasm of the brain; Z88.0 Allergy status to penicillin; Z88.8 Allergy status to other drugs, medicaments and biological substances; Z90.710 Acquired absence of both cervix and uterus
CPT/HCPCS: 82962; 87081; 92507; 92523; 95816; 97110; 97112; 97116; 97150; 97162; 97165; 97530; 97535; 99366; J1644; J8540